=== PATIENT | female | born 1970 | race Caucasian/White ===

== ENCOUNTER 2025-03-27 18:34 | Emergency (ER) | payer OTHER, SELFPAY ==
[2025-03-27] VITALS (10 sets, daily range): BP systolic 120–220; BP diastolic 57–81; PULSE 52–76; RESP 14–33; TEMP 36.8; O2SAT 95–98; BMI 26.5
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
[2025-03-27] MEDS: SODIUM CHLORIDE 0.9% 1,000 ML 1000 ML IV (19:56)
[2025-03-27] MEDS: KETAMINE 500 MG/5 ML INJ 66 MG IV (19:57)
--- NOTE | 2025-03-27 20:19 | DI.RAD.S_ITS ---
PROCEDURE: XR WRIST RT MIN 3V INDICATIONS: post reduction TECHNIQUE: 3 views of the wrist were acquired. COMPARISON: [facility], , XR WRIST RT MIN 3V, 03/27/2025, 18:44. FINDINGS/IMPRESSION: Interval reduction, with decreased apex volar angulation of the radial styloid fracture. Unchanged ulnar styloid fracture. Dictated by: Liborio Olmstead M.D. on 03/27/2025 at 21:01 Approved by: Liborio Olmstead M.D. on 03/27/2025 at 21:02
--- NOTE | 2025-03-27 20:33 | PC.NURSE ---
Pt fully awake, spouse at bedside. Pt given drink and snack.
[2025-03-27] MEDS: ONDANSETRON 4 MG ODT PREPACK 1 BOTTLE MISC (21:00)
[2025-03-27] MEDS: OXYCODONE/APAP 5/325 PREPACK 1 BOTTLE MISC (21:00)
== END 2025-03-27 21:19 | disposition home or self-care (01) ==
PROVIDERS: Emergency Provider Student in an Organized Health Care Education/Training Program
DX: S52.571A Other intraarticular fracture of lower end of right radius, initial encounter for closed fracture (principal); V19.9XXA Pedal cyclist (driver) (passenger) injured in unspecified traffic accident, initial encounter
CPT/HCPCS: 25605; 36415; 73090; 73110; 96360; 99152; 99285